=== PATIENT | female | born 1960 | race Caucasian/White ===

== ENCOUNTER 2019-02-25 06:55 | Day surgery (SDC) | payer BC ==
[2019-02-24 17:22] LABS: BASOPHILS % (AUTO) 0.7 % (0-1); EOSINOPHILS # (AUTO) 0.1 X10'3 (0-0.9); EOSINOPHILS % (AUTO) 2.1 % (0-6); HEMATOCRIT 41.5 % (35.0-45.0); LYMPHOCYTES # (AUTO) 1.4 X10'3 (1.1-4.8); LYMPHOCYTES % (AUTO) 27.6 % (21-51); MEAN CORPUSCULAR HEMOGLOBIN 31.6 PG (27.0-31.0); MEAN CORPUSCULAR HGB CONC 33.7 g/dL (33.0-36.5); MEAN CORPUSCULAR VOLUME 93.7 FL (78-98); MEAN PLATELET VOLUME 8.1 FL (7.4-10.4); MONOCYTES # (AUTO) 0.4 X10'3 (0-0.9); MONOCYTES % (AUTO) 8.8 % (2-12); NEUTROPHILS % (AUTO) 60.8 % (42-75); PLATELET COUNT 205 X10'3 (140-440); RED BLOOD COUNT 4.43 X10'6 (4.20-5.60); RED CELL DISTRIBUTION WIDTH 13.5 % (11.5-14.5)
[2019-02-24 17:27] LABS: ALBUMIN 3.7 G/DL (3.4-5.0); ANION GAP 5 (8-16); BLOOD UREA NITROGEN 18 MG/DL (7-18); BUN/CREATININE RATIO 24.3 (6.6-38.0); CALCIUM 8.8 MG/DL (8.5-10.1); CHLORIDE 108 MMOL/L (99-107); CREATININE 0.74 MG/DL (0.40-0.90); GLUCOSE 96 MG/DL (70-104); POTASSIUM 4.5 MMOL/L (3.5-5.1); SODIUM 144 MMOL/L (135-145); TOTAL CARBON DIOXIDE 30.9 MMOL/L (24-32); eGFR 81 ML/MIN
[2019-02-25] VITALS (10 sets, daily range): BP systolic 113–142; BP diastolic 57–80
[~2019-02-25] VITALS: Ht 160 cm; Wt 173.1 kg
[~2019-02-25 06:55] MED LIST: ASCO-157 PO; BENZ-16 PO; CHOL500044 PO; DABI150C PO; DILT-35 PO; DRON400T2 PO; FEXO180T94 PO; HYDR-4353 PO; IBUP-1984 PO; IRON PO; LEVO200T42 PO; LEVO75TA56 PO; METF-516 PO; MULT1TAB74 PO; PANT40TA4 PO; [UNRECOGNIZED DRUG - OTHER] PO
[2019-02-25] MEDS ORDERED: morphine 10mg/ml inj. IV ONE (07:15)
[2019-02-25] MEDS ORDERED: amiodarone in dextrose, iso-osm 150mg/100ml bag IV ONE (07:15)
[2019-02-25] MEDS ORDERED: normal saline 1000ml 1,000 ML IV SCH (07:15)
[2019-02-25] MEDS ORDERED: LORazepam 0.5 MG tablet PO ONE (07:15)
[2019-02-25] MEDS ORDERED: atropine 0.1mg/ml 10ml syringe IV ONE (07:15)
[2019-02-25] MEDS ORDERED: MIDAZolam 5mg/ml 2ml vial IV ONE (07:15)
[2019-02-25] MEDS ORDERED: FURO40TA4 PO (07:53)
[2019-02-25] MEDS ORDERED: DIGO125T PO (07:53)
[2019-02-25] MEDS ORDERED: DIAZ5TAB PO (07:53)
[2019-02-25] MEDS ORDERED: APIX5TAB3 PO (07:53)
== END 2019-02-25 11:20 | disposition home or self-care (01) ==
LOC: SSTAY O 06:55
PROVIDERS: ATTEND Internal Medicine Cardiovascular Disease
DX: I48.0 Paroxysmal atrial fibrillation (principal); G47.33 Obstructive sleep apnea (adult) (pediatric); E11.9 Type 2 diabetes mellitus without complications; E03.9 Hypothyroidism, unspecified; M19.90 Unspecified osteoarthritis, unspecified site; G89.29 Other chronic pain; E66.01 Morbid (severe) obesity due to excess calories; Z68.44 Body mass index [BMI] 60.0-69.9, adult; Z86.73 Personal history of transient ischemic attack (TIA), and cerebral infarction without residual deficits; Z79.899 Other long term (current) drug therapy; Z90.49 Acquired absence of other specified parts of digestive tract; Z98.890 Other specified postprocedural states; Z79.01 Long term (current) use of anticoagulants; Z96.651 Presence of right artificial knee joint; Z87.442 Personal history of urinary calculi; Z88.2 Allergy status to sulfonamides
CPT/HCPCS: 36415; 80048; 85025; 85610; 92960; 93005; 94760; J0282; J0461; J2250; J2270; J7030

== ENCOUNTER 2019-08-03 12:39 | Emergency (ER) | payer BC ==
[~2019-08-03] VITALS: Ht 167.6 cm; Wt 162.0 kg
[~2019-08-03 12:39] MED LIST changes: +APIX5TAB3 PO; -BENZ-16 PO; -DABI150C PO; +DIAZ5TAB PO; +DIGO125T PO; +FURO40TA4 PO; -METF-516 PO; -[UNRECOGNIZED DRUG - OTHER] PO
[2019-08-03 13:20] LABS: BASOPHILS % (AUTO) 0.4 % (0-1); EOSINOPHILS # (AUTO) 0.1 X10'3 (0-0.9); EOSINOPHILS % (AUTO) 1.6 % (0-6); HEMOGLOBIN 14.2 g/dl (12.0-16.0); LYMPHOCYTES # (AUTO) 1.3 X10'3 (1.1-4.8); LYMPHOCYTES % (AUTO) 22.4 % (21-51); MEAN CORPUSCULAR HEMOGLOBIN 29.8 PG (27.0-31.0); MEAN CORPUSCULAR HGB CONC 33.9 g/dL (33.0-36.5); MEAN CORPUSCULAR VOLUME 87.7 FL (78-98); MEAN PLATELET VOLUME 8.1 FL (7.4-10.4); MONOCYTES # (AUTO) 0.5 X10'3 (0-0.9); MONOCYTES % (AUTO) 9.5 % (2-12); NEUTROPHILS # (AUTO) 3.7 X10'3 (1.8-7.7); NEUTROPHILS % (AUTO) 66.1 % (42-75); PLATELET COUNT 208 X10'3 (140-440); RED BLOOD COUNT 4.79 X10'6 (4.20-5.60); RED CELL DISTRIBUTION WIDTH 14.4 % (11.5-14.5); WHITE BLOOD COUNT 5.6 X10'3 (4.5-11.0)
[2019-08-03 13:32] LABS: ALANINE AMINOTRANSFERASE 32 U/L (12-78); ALBUMIN 3.8 G/DL (3.4-5.0); ALBUMIN/GLOBULIN RATIO 1.2 (1.1-1.5); ALKALINE PHOSPHATASE 84 IU/L (46-116); ANION GAP 7 (8-16); ASPARTATE AMINO TRANSFERASE 19 U/L (10-37); BILIRUBIN,TOTAL 0.6 MG/DL (0.1-1.0); BLOOD UREA NITROGEN 16 MG/DL (7-18); BUN/CREATININE RATIO 16.7 (6.6-38.0); CHLORIDE 107 MMOL/L (99-107); CREATININE 0.96 MG/DL (0.40-0.90); GLUCOSE 97 MG/DL (70-104); POTASSIUM 4.2 MMOL/L (3.5-5.1); SODIUM 145 MMOL/L (135-145); TOTAL CARBON DIOXIDE 30.8 MMOL/L (24-32); TOTAL PROTEIN 6.9 G/DL (6.4-8.2); eGFR 60 ML/MIN
[2019-08-03] MEDS ORDERED: LORazepam 2 mg/ml vial IV ONE (14:25)
[2019-08-03] MEDS ORDERED: ondansetron/PF 4mg/2ml inj IV ONE (14:35)
[2019-08-03] MEDS ORDERED: etomidate 2mg/ml inj. IV ONE (14:50)
--- NOTE | 2019-08-03 15:08 | NUR ---
cardioversion with 100 J at 1508. 1 shock delivered. RN, MD, RT AND TECH AT BEDSIDE.
--- NOTE | 2019-08-03 16:14 | NUR ---
pt is awake and alert
[2019-08-03 16:37] VITALS: BP 106/53
--- NOTE | 2019-08-03 17:05 | NUR ---
PT VVS HAVE BEEN STABLE. PT ABLE TO AMBULATE INDEPENDENTLY. PT IN SINUS. PT DENIES N/V. PT DC TO CARE OF
== END 2019-08-03 17:10 | disposition home or self-care (01) ==
LOC: ER 12:40
DX: I48.20 Chronic atrial fibrillation, unspecified (principal); R42 Dizziness and giddiness; I10 Essential (primary) hypertension; G89.29 Other chronic pain; Z87.442 Personal history of urinary calculi; Z98.890 Other specified postprocedural states; Z90.49 Acquired absence of other specified parts of digestive tract; Z88.2 Allergy status to sulfonamides; Z79.899 Other long term (current) drug therapy
CPT/HCPCS: 36415; 71045; 80053; 84484; 85025; 92960; 93005; 96374; 96375; 99285; J2060; J2405

== ENCOUNTER 2019-09-07 11:18 | Emergency (ER) | payer BC ==
[~2019-09-07] VITALS: Ht 167.6 cm; Wt 166.3 kg
[2019-09-07 11:46] LABS: BASOPHILS % (AUTO) 0.4 % (0-1); EOSINOPHILS # (AUTO) 0.2 X10'3 (0-0.9); EOSINOPHILS % (AUTO) 4.3 % (0-6); HEMATOCRIT 40.8 % (35.0-45.0); HEMOGLOBIN 13.6 g/dl (12.0-16.0); LYMPHOCYTES # (AUTO) 1.2 X10'3 (1.1-4.8); LYMPHOCYTES % (AUTO) 23.3 % (21-51); MEAN CORPUSCULAR HEMOGLOBIN 29.8 PG (27.0-31.0); MEAN CORPUSCULAR HGB CONC 33.4 g/dL (33.0-36.5); MEAN CORPUSCULAR VOLUME 89.2 FL (78-98); MEAN PLATELET VOLUME 8.1 FL (7.4-10.4); MONOCYTES # (AUTO) 0.4 X10'3 (0-0.9); MONOCYTES % (AUTO) 7.3 % (2-12); NEUTROPHILS # (AUTO) 3.2 X10'3 (1.8-7.7); NEUTROPHILS % (AUTO) 64.7 % (42-75); PLATELET COUNT 209 X10'3 (140-440); RED BLOOD COUNT 4.57 X10'6 (4.20-5.60); RED CELL DISTRIBUTION WIDTH 14.5 % (11.5-14.5); WHITE BLOOD COUNT 4.9 X10'3 (4.5-11.0)
[2019-09-07 12:00] LABS: ALANINE AMINOTRANSFERASE 31 U/L (12-78); ALBUMIN 3.5 G/DL (3.4-5.0); ALBUMIN/GLOBULIN RATIO 1.1 (1.1-1.5); ALKALINE PHOSPHATASE 77 IU/L (46-116); ANION GAP 7 (8-16); ASPARTATE AMINO TRANSFERASE 20 U/L (10-37); BILIRUBIN,TOTAL 0.7 MG/DL (0.1-1.0); BLOOD UREA NITROGEN 19 MG/DL (7-18); BUN/CREATININE RATIO 22.6 (6.6-38.0); CALCIUM 8.8 MG/DL (8.5-10.1); CHLORIDE 107 MMOL/L (99-107); CREATININE 0.84 MG/DL (0.40-0.90); GLUCOSE 132 MG/DL (70-104); POTASSIUM 4.3 MMOL/L (3.5-5.1); SODIUM 142 MMOL/L (135-145); TOTAL PROTEIN 6.6 G/DL (6.4-8.2); eGFR 70 ML/MIN
[2019-09-07] MEDS ORDERED: LORazepam 2 mg/ml vial IV ONE (13:05)
[2019-09-07] MEDS ORDERED: etomidate 2mg/ml inj. IV ONE (13:05)
[2019-09-07] MEDS ORDERED: ondansetron/PF 4mg/2ml inj IV ONE (13:05)
[2019-09-07 15:33] VITALS: BP 147/78
== END 2019-09-07 15:34 | disposition home or self-care (01) ==
LOC: ER 11:19
DX: I48.91 Unspecified atrial fibrillation (principal); I10 Essential (primary) hypertension; G47.30 Sleep apnea, unspecified; Z90.49 Acquired absence of other specified parts of digestive tract; Z98.890 Other specified postprocedural states; Z88.2 Allergy status to sulfonamides; Z79.01 Long term (current) use of anticoagulants; Z79.899 Other long term (current) drug therapy
CPT/HCPCS: 36415; 71045; 80053; 84443; 84484; 85025; 92960; 93005; 96374; 96375; 99285; J2060; J2405

== ENCOUNTER 2021-05-21 08:40 | Emergency (ER) | payer BC ==
[~2021-05-21] VITALS: Ht 165.1 cm; Wt 160.0 kg
[~2021-05-21 08:40] MED LIST changes: -DRON400T2 PO; +DRON400T7 PO; +MULT-620 PO; -MULT1TAB74 PO; -PANT40TA4 PO; +PANT40TA54 PO
[2021-05-21] MEDS ORDERED: propofol 10mg/ml 20ml vial IV ONE (10:25)
[2021-05-21] MEDS ORDERED: fentaNYL/PF 50MCG/1 ML 2ML syringe IV ONE (11:15)
[2021-05-21 12:14] VITALS: BP 145/76
[2021-05-30] MEDS ORDERED: LEVO25TA7 PO (18:42)
[2021-05-30] MEDS ORDERED: LORA10TA7 PO (18:42)
[2021-05-30] MEDS ORDERED: ASPI-529 PO (18:43)
[2021-05-30] MEDS ORDERED: CYAN-50 PO (18:43)
== END 2021-05-21 12:16 | disposition home or self-care (01) ==
LOC: ER 08:41
DX: S52.501A Unspecified fracture of the lower end of right radius, initial encounter for closed fracture (principal); W19.XXXA Unspecified fall, initial encounter; Y93.89 Activity, other specified; Y92.89 Other specified places as the place of occurrence of the external cause; Y99.8 Other external cause status
CPT/HCPCS: 25600; 73030; 73100; 73110; 96374; 99152; 99285; J3010

== ENCOUNTER 2021-06-05 07:28 | Day surgery (SDC) | payer BC ==
[2021-06-05] VITALS (7 sets, daily range): BP systolic 115–139; BP diastolic 61–75
[~2021-06-05] VITALS: Ht 165.1 cm; Wt 160.7 kg
[~2021-06-05 07:28] MED LIST changes: -APIX5TAB3 PO; +ASPI-529 PO; +CYAN-50 PO; -DIAZ5TAB PO; -DIGO125T PO; -DILT-35 PO; -DRON400T7 PO; -FURO40TA4 PO; +LEVO25TA7 PO; -LEVO75TA56 PO; +LORA10TA7 PO; -MULT-620 PO; +acetaminophen 325mg tablet PO ONE; +ceFAZolin inj. 3,000 MG in normal saline 100ml IV soln 100 ML IV ONE; +celeCOXIB 100mg capsule PO ONE; +famotidine 20mg tablet PO ONE; +gabapentin 300mg capsule PO ONE; +metoclopramide 5 mg/ml inj IV ONE; +oxyCODONE SR 10mg (sust. release) tab -2 tabs (20mg) PO ONE; +ringers solution, lacted 1,000 ML IV SCH; +tranexamic acid inj. 1,000 MG in 0.7% saline 100 ML PMX IV ONE; +vancomycin 1,500 MG in NS 300ml IV soln IV ONE
[2021-06-05] MEDS ORDERED: ondansetron/PF 4mg/2ml inj IV PRN (09:10)
[2021-06-05] MEDS ORDERED: morphine 2 MG/ML inj. syringe IV PRN (09:10)
[2021-06-05] MEDS ORDERED: ringers solution, lacted 1,000 ML IV SCH (09:10)
[2021-06-05] MEDS ORDERED: meperidine/PF 25mg/ml syringe IV PRN ×3 (09:10)
[2021-06-05] MEDS ORDERED: morphine 4 MG/ML inj SYRINge IV PRN (09:10)
[2021-06-05] MEDS ORDERED: proCHLORperazine 10 MG/2 ml inj IV PRN (09:10)
[2021-06-05 09:19] LABS: BASOPHILS % (AUTO) 0.4 % (0-1); EOSINOPHILS # (AUTO) 0.2 X10'3 (0-0.9); EOSINOPHILS % (AUTO) 4.1 % (0-6); LYMPHOCYTES # (AUTO) 0.8 X10'3 (1.1-4.8); LYMPHOCYTES % (AUTO) 19.2 % (21-51); MEAN CORPUSCULAR HEMOGLOBIN 31.7 PG (27.0-31.0); MEAN CORPUSCULAR HGB CONC 34.9 g/dL (33.0-36.5); MEAN CORPUSCULAR VOLUME 90.8 FL (78-98); MEAN PLATELET VOLUME 7.6 FL (7.4-10.4); MONOCYTES # (AUTO) 0.3 X10'3 (0-0.9); MONOCYTES % (AUTO) 8.2 % (2-12); NEUTROPHILS # (AUTO) 2.8 X10'3 (1.8-7.7); NEUTROPHILS % (AUTO) 68.1 % (42-75); PRE OP HEMATOCRIT 36.2 % (35.0-45.0); PRE OP HEMOGLOBIN 12.6 g/dL (12.0-16.0); PRE OP PLATELET COUNT 200 X10'3 (140-440); RED BLOOD COUNT 3.98 X10'6 (4.20-5.60); RED CELL DISTRIBUTION WIDTH 13.6 % (11.5-14.5)
[2021-06-05 09:28] LABS: ALANINE AMINOTRANSFERASE 29 U/L (12-78); ALBUMIN 3.4 G/DL (3.4-5.0); ALBUMIN/GLOBULIN RATIO 1.1 (1.1-1.5); ALKALINE PHOSPHATASE 74 IU/L (46-116); ASPARTATE AMINO TRANSFERASE 19 U/L (10-37); BILIRUBIN,TOTAL 0.6 MG/DL (0.1-1.0); BLOOD UREA NITROGEN 14 MG/DL (7-18); BUN/CREATININE RATIO 20.3 (6.6-38.0); CALCIUM 8.6 MG/DL (8.5-10.1); CREATININE 0.69 MG/DL (0.40-0.90); GLUCOSE 97 MG/DL (70-104); TOTAL CARBON DIOXIDE 27.8 MMOL/L (24-32); TOTAL PROTEIN 6.5 G/DL (6.4-8.2); eGFR 87 ML/MIN
[2021-06-05 09:34] LABS: CHLORIDE 105 MMOL/L (99-107); POTASSIUM 3.9 MMOL/L (3.5-5.1)
[2021-06-05 09:56] LABS: ANION GAP 8 (8-16); SODIUM 141 MMOL/L (135-145)
[2021-06-05] MEDS ORDERED: BUPIVAcaine/PF 2.5mg/ml (0.25%) 10ml vial ONE (10:16)
[2021-06-05] MEDS ORDERED: sevoflurane 250ml liquid IH ONE (10:25)
[2021-06-05] MEDS ORDERED: MIDAZolam 1 MG/ML 5ML VIAL ONE (10:35)
[2021-06-05] MEDS ORDERED: fentaNYL/PF 50MCG/1 ML 2ML syringe ONE (10:35)
[2021-06-05] MEDS ORDERED: ROPIVAcaine 0.5% (5mg/ml) 30ml vial ONE (10:57)
[2021-06-05] MEDS ORDERED: LIDOcaine 2% (20mg/ml) 5ml vial ONE ×2 (10:57→11:15)
[2021-06-05] MEDS ORDERED: dexamethasone sod phosphate 4mg/ml inj. ONE (11:15)
[2021-06-05] MEDS ORDERED: propofol inj 20 ML IV ONE (11:15)
[2021-06-05] MEDS ORDERED: ondansetron/PF 4mg/2ml inj ONE (11:44)
--- NOTE | 2021-06-05 12:02 | NUR ---
Received from OR via [facility] , accompanied by Anesthesiologist DR RODRIGUEZ and report given by Anesthesiolgist. PT COMFORTABLE, AWAKE, DENIES PAIN AND NAUSEA. IV PATENT. SLING TO RIGHT ARM. RIGHT ARM ELEVATED, ICE PACK IN PLACE. GOOD CSM TO RIGHT HAND, FINGERS NORMAL SKIN COLOR. PT RESTING COMFORTABLY.
--- NOTE | 2021-06-05 13:02 | NUR ---
PT DISCHARGED TO HOME SAFELY. INSTRUCTIONS REVIEWED W/ PT WHO STATES UNDERSTANDING. DRSG TO RIGHT ARM CDI. SLING ON. PT TOLERATED LEMON CABAZON SODA AND STATES SHE WAS STARTING TO FEEL MILD PAIN BUT WANTED TO GO HOME AND TAKE HER HOME PAIN MEDICATION. ALL BELONGING W/ PT UPON D/C TO HOME INCLUDING PURSE, MASK AND SHE WAS WEARING HER STREET CLOTHES.
== END 2021-06-05 13:02 | disposition home or self-care (01) ==
LOC: PAS 07:28
PROVIDERS: ATTEND Orthopaedic Surgery
DX: S52.571A Other intraarticular fracture of lower end of right radius, initial encounter for closed fracture (principal); G89.18 Other acute postprocedural pain; I10 Essential (primary) hypertension; I48.91 Unspecified atrial fibrillation; E11.9 Type 2 diabetes mellitus without complications; E03.9 Hypothyroidism, unspecified; M19.90 Unspecified osteoarthritis, unspecified site; G89.29 Other chronic pain; E66.9 Obesity, unspecified; Z68.43 Body mass index [BMI] 50.0-59.9, adult; Z88.2 Allergy status to sulfonamides; Z90.49 Acquired absence of other specified parts of digestive tract; Z98.84 Bariatric surgery status; Z96.652 Presence of left artificial knee joint; Z98.890 Other specified postprocedural states; Z79.899 Other long term (current) drug therapy; X58.XXXA Exposure to other specified factors, initial encounter; Y93.89 Activity, other specified; Y92.89 Other specified places as the place of occurrence of the external cause; Y99.8 Other external cause status
CPT/HCPCS: 25609; 36415; 64417; 76942; 80053; 82948; 85025; 86870; 86885; 86900; 86901; 86902; 86905; 93005; A6222; C1713; J0690; J1100; J2250; J2405; J2704; J2765; J2795; J3010; J3370; J3490; J7030; J7040; J7120; Z7506; Z7508; Z7512; A4618; A6446; A6449; A7000

== ENCOUNTER 2021-10-12 08:26 | Emergency (ER) | payer BC ==
[~2021-10-12] VITALS: Ht 165.1 cm; Wt 158.6 kg
[~2021-10-12 08:26] MED LIST changes: -acetaminophen 325mg tablet PO ONE; -ceFAZolin inj. 3,000 MG in normal saline 100ml IV soln 100 ML IV ONE; -celeCOXIB 100mg capsule PO ONE; -famotidine 20mg tablet PO ONE; -gabapentin 300mg capsule PO ONE; -metoclopramide 5 mg/ml inj IV ONE; -oxyCODONE SR 10mg (sust. release) tab -2 tabs (20mg) PO ONE; -ringers solution, lacted 1,000 ML IV SCH; -tranexamic acid inj. 1,000 MG in 0.7% saline 100 ML PMX IV ONE; -vancomycin 1,500 MG in NS 300ml IV soln IV ONE
[2021-10-12] MEDS ORDERED: magnesium 2GM in 50ml NS 50 ML IV ONE (09:05)
[2021-10-12 09:12] LABS: BASOPHILS % (AUTO) 0.4 % (0-1); EOSINOPHILS # (AUTO) 0.1 X10'3 (0-0.9); EOSINOPHILS % (AUTO) 3.3 % (0-6); HEMATOCRIT 42.6 % (35.0-45.0); HEMOGLOBIN 14.3 g/dl (12.0-16.0); LYMPHOCYTES # (AUTO) 0.9 X10'3 (1.1-4.8); LYMPHOCYTES % (AUTO) 22.1 % (21-51); MEAN CORPUSCULAR HEMOGLOBIN 30.6 PG (27.0-31.0); MEAN CORPUSCULAR HGB CONC 33.5 g/dL (33.0-36.5); MEAN CORPUSCULAR VOLUME 91.6 FL (78-98); MEAN PLATELET VOLUME 7.7 FL (7.4-10.4); MONOCYTES # (AUTO) 0.4 X10'3 (0-0.9); MONOCYTES % (AUTO) 10.7 % (2-12); NEUTROPHILS # (AUTO) 2.6 X10'3 (1.8-7.7); NEUTROPHILS % (AUTO) 63.5 % (42-75); PLATELET COUNT 191 X10'3 (140-440); RED BLOOD COUNT 4.65 X10'6 (4.20-5.60); RED CELL DISTRIBUTION WIDTH 13.7 % (11.5-14.5); WHITE BLOOD COUNT 4.1 X10'3 (4.5-11.0)
[2021-10-12 09:30] LABS: ALANINE AMINOTRANSFERASE 33 U/L (12-78); ALBUMIN 3.5 G/DL (3.4-5.0); ALBUMIN/GLOBULIN RATIO 1.1 (1.1-1.5); ALKALINE PHOSPHATASE 80 IU/L (46-116); ANION GAP 7 (8-16); ASPARTATE AMINO TRANSFERASE 22 U/L (10-37); BILIRUBIN,TOTAL 0.8 MG/DL (0.1-1.0); BLOOD UREA NITROGEN 17 MG/DL (7-18); BUN/CREATININE RATIO 26.2 (6.6-38.0); CALCIUM 8.6 MG/DL (8.5-10.1); CHLORIDE 108 MMOL/L (99-107); CREATININE 0.65 MG/DL (0.40-0.90); GLUCOSE 104 MG/DL (70-104); POTASSIUM 4.5 MMOL/L (3.5-5.1); SODIUM 144 MMOL/L (135-145); TOTAL CARBON DIOXIDE 29.1 MMOL/L (24-32); TOTAL PROTEIN 6.6 G/DL (6.4-8.2); eGFR > 90 ML/MIN
--- NOTE | 2021-10-12 10:20 | NUR ---
Asked MD if he wanted to wait for Magnesium drip. He asked how long it would be until it finished and I told him about an hour. He said to open the drip wide open and send the pt home.
[2021-10-12 10:21] VITALS: BP 116/66
== END 2021-10-12 10:45 | disposition home or self-care (01) ==
LOC: ER 08:27
DX: I48.0 Paroxysmal atrial fibrillation (principal); I10 Essential (primary) hypertension; G89.29 Other chronic pain; M54.9 Dorsalgia, unspecified; Z87.442 Personal history of urinary calculi; Z88.2 Allergy status to sulfonamides; Z88.6 Allergy status to analgesic agent; Z88.8 Allergy status to other drugs, medicaments and biological substances; Z88.5 Allergy status to narcotic agent; Z88.1 Allergy status to other antibiotic agents
CPT/HCPCS: 36415; 71045; 80053; 83880; 84484; 85025; 93005; 96365; 99285; J3475

== ENCOUNTER 2022-04-10 18:27 | Emergency (ER) | payer BC ==
[~2022-04-10] VITALS: Ht 167.6 cm; Wt 160.4 kg
[2022-04-10 19:11] LABS: BASOPHILS % (AUTO) 0.6 % (0-1); EOSINOPHILS # (AUTO) 0.1 X10'3 (0-0.9); EOSINOPHILS % (AUTO) 2.6 % (0-6); HEMATOCRIT 41.2 % (35.0-45.0); HEMOGLOBIN 14.2 g/dl (12.0-16.0); LYMPHOCYTES # (AUTO) 1.4 X10'3 (1.1-4.8); LYMPHOCYTES % (AUTO) 26.7 % (21-51); MEAN CORPUSCULAR HEMOGLOBIN 31.7 PG (27.0-31.0); MEAN CORPUSCULAR HGB CONC 34.4 g/dL (33.0-36.5); MEAN PLATELET VOLUME 7.8 FL (7.4-10.4); MONOCYTES # (AUTO) 0.5 X10'3 (0-0.9); NEUTROPHILS # (AUTO) 3.3 X10'3 (1.8-7.7); NEUTROPHILS % (AUTO) 61.1 % (42-75); PLATELET COUNT 200 X10'3 (140-440); RED BLOOD COUNT 4.48 X10'6 (4.20-5.60); RED CELL DISTRIBUTION WIDTH 13.7 % (11.5-14.5); WHITE BLOOD COUNT 5.4 X10'3 (4.5-11.0)
[2022-04-10 19:20] LABS: ALANINE AMINOTRANSFERASE 47 U/L (12-78); ALBUMIN 3.7 G/DL (3.4-5.0); ALBUMIN/GLOBULIN RATIO 1.2 (1.1-1.5); ALKALINE PHOSPHATASE 85 IU/L (46-116); ANION GAP 5 (8-16); ASPARTATE AMINO TRANSFERASE 26 U/L (10-37); BILIRUBIN,TOTAL 0.6 MG/DL (0.1-1.0); BLOOD UREA NITROGEN 18 MG/DL (7-18); CALCIUM 9.4 MG/DL (8.5-10.1); CHLORIDE 106 MMOL/L (99-107); CREATININE 0.75 MG/DL (0.40-0.90); GLUCOSE 107 MG/DL (70-104); POTASSIUM 4.6 MMOL/L (3.5-5.1); SODIUM 141 MMOL/L (135-145); TOTAL PROTEIN 6.9 G/DL (6.4-8.2); eGFR 79 ML/MIN
[2022-04-10] MEDS ORDERED: NORMAL SALINE IV ONE (19:40)
[2022-04-10] MEDS ORDERED: diazepam inj 5 MG/ML inj. IV ONE (19:40)
[2022-04-10] MEDS ORDERED: ondansetron/PF 4mg/2ml inj IV ONE (19:40)
[2022-04-10] MEDS ORDERED: KETAMINE IV ONE (19:40)
[2022-04-10] MEDS ORDERED: ketamine 10mg/ml 20ml inj 45 MG in normal saline 100ml IV soln 100 ML IV ONE (19:48)
[2022-04-10] MEDS ORDERED: ketamine 50mg/5ml syringe IV ONE (20:00)
[2022-04-10] MEDS ORDERED: ketamine 50 mg/ml 10ml vial ONE (20:12)
[2022-04-10] MEDS ORDERED: metoprolol tartrate 1mg/ml inj IV ONE (20:35)
[2022-04-10 22:23] VITALS: BP 112/74
== END 2022-04-10 22:24 | disposition home or self-care (01) ==
LOC: ER 18:28
DX: I48.91 Unspecified atrial fibrillation (principal); G89.29 Other chronic pain; M54.9 Dorsalgia, unspecified; I10 Essential (primary) hypertension; Z87.442 Personal history of urinary calculi; Z88.2 Allergy status to sulfonamides; Z88.0 Allergy status to penicillin; Z79.899 Other long term (current) drug therapy; Z79.82 Long term (current) use of aspirin
CPT/HCPCS: 36415; 71045; 80053; 83880; 84484; 85025; 93005; 94799; 96374; 96375; 99285; J2405; J3360; J3490; 94760

== ENCOUNTER 2022-12-20 11:35 | Inpatient (IN) | payer BC ==
[~2022-12-20] VITALS: Ht 165.1 cm; Wt 159.0 kg
[2022-12-20] MEDS ORDERED: iohexol 300mg/ml 100ml inj. ONE (15:35)
[2022-12-20 16:23] LABS: BASOPHILS % (AUTO) 0.4 % (0-1); EOSINOPHILS # (AUTO) 0.1 X10'3 (0-0.9); EOSINOPHILS % (AUTO) 2.6 % (0-6); HEMOGLOBIN 13.6 g/dl (12.0-16.0); LYMPHOCYTES # (AUTO) 0.9 X10'3 (1.1-4.8); MEAN CORPUSCULAR HGB CONC 33.1 g/dL (33.0-36.5); MEAN CORPUSCULAR VOLUME 93.8 FL (78-98); MEAN PLATELET VOLUME 7.3 FL (7.4-10.4); MONOCYTES # (AUTO) 0.4 X10'3 (0-0.9); MONOCYTES % (AUTO) 9.1 % (2-12); NEUTROPHILS # (AUTO) 2.5 X10'3 (1.8-7.7); NEUTROPHILS % (AUTO) 63.9 % (42-75); PLATELET COUNT 183 X10'3 (140-440); RED BLOOD COUNT 4.37 X10'6 (4.20-5.60); WHITE BLOOD COUNT 3.9 X10'3 (4.5-11.0)
[2022-12-20 16:45] LABS: ALANINE AMINOTRANSFERASE 29 U/L (12-78); ALBUMIN 3.7 G/DL (3.4-5.0); ALBUMIN/GLOBULIN RATIO 1.2 (1.1-1.5); ALKALINE PHOSPHATASE 76 IU/L (46-116); ANION GAP 10 (8-16); ASPARTATE AMINO TRANSFERASE 18 U/L (10-37); BILIRUBIN,TOTAL 0.8 MG/DL (0.1-1.0); BLOOD UREA NITROGEN 16 MG/DL (7-18); BUN/CREATININE RATIO 25.4 (10.0-20.0); CALCIUM 9.2 MG/DL (8.5-10.1); CHLORIDE 102 MMOL/L (99-107); CREATININE 0.63 MG/DL (0.40-0.90); GLUCOSE 104 MG/DL (70-104); POTASSIUM 4.3 MMOL/L (3.5-5.1); SODIUM 142 MMOL/L (135-145); TOTAL CARBON DIOXIDE 29.7 MMOL/L (24-32); TOTAL PROTEIN 6.7 G/DL (6.4-8.2); eGFR > 90 ML/MIN
[2022-12-20] MEDS ORDERED: metroNIDAZOLE-Flagyl 500mg/NS 100 ML IV STA (19:46)
[2022-12-20] MEDS ORDERED: vancomycin/NS 1 GM ADD-VANTAGE 250 ML IV ONE (19:50)
--- NOTE | 2022-12-20 20:08 | NUR ---
Patient moved from ER fast track to ER Rm 5 via wheelchair.
--- NOTE | 2022-12-20 20:43 | NUR ---
PER PHARMACY OK TO RUN GALO AND JESSICA TOGETHER
[2022-12-20] MEDS ORDERED: temazepam 15mg capsule PO PRN (21:00)
[2022-12-20] MEDS ORDERED: HYDROcodone/acetaminophen 10/325mg tab PO ONE (21:05)
[2022-12-20] MEDS ORDERED: mag hydrox/Alum hydrox/simeth 30ml oral suspension PO PRN (21:35)
[2022-12-20] MEDS ORDERED: acetaminophen 325mg tablet PO PRN (21:35)
[2022-12-20] MEDS ORDERED: magnesium 4gm in 100ml NS 100 ML IV PRN (21:35)
[2022-12-20] MEDS ORDERED: magnesium Cl slow-release 64mg tablet PO PRN (21:35)
[2022-12-20] MEDS ORDERED: magnesium hydroxide 30ml (MOM) UD suspension PO PRN (21:35)
[2022-12-20] MEDS ORDERED: ondansetron/PF 4mg/2ml inj IV PRN (21:35)
[2022-12-20] MEDS ORDERED: magnesium 2GM in 50ml NS 50 ML IV PRN (21:35)
[2022-12-20] MEDS ORDERED: potassium Cl 40MEQ/1/2NS 520ml 520 ML IV PRN (21:35)
[2022-12-20] MEDS ORDERED: potassium Cl 20 mEq SR tablet PO PRN ×2 (21:35)
--- NOTE | 2022-12-20 23:08 | NUR ---
REQUESTED HOSPITAL BED
--- NOTE | 2022-12-20 23:47 | NUR ---
Pt arrived to floor via w/c. VSS. Oriented to room. MRSA swab collected.
[2022-12-20 23:53] VITALS: BP 132/82
[2022-12-21] MEDS ORDERED: cefepime 2g/NS 100ml ADVANTAGE 100 ML IV SCH
[2022-12-21] MEDS: morphine 2 MG/ML inj. syringe IV PRN (00:16)
[2022-12-21] MEDS ORDERED: NYSPWD TOP (01:05)
[2022-12-21] MEDS ORDERED: fluticasone (01:05)
[2022-12-21] MEDS ORDERED: CHOL500050 PO (01:05)
[2022-12-21] MEDS ORDERED: HYDR-3973 PO (01:05)
[2022-12-21] MEDS ORDERED: NITR100C11 PO (01:05)
[2022-12-21] MEDS ORDERED: MAGN400T56 PO (01:05)
[2022-12-21] MEDS ORDERED: FEXO-310 PO (01:05)
[2022-12-21] MEDS ORDERED: DIAZ5TAB22 PO (01:05)
[2022-12-21] MEDS ORDERED: AMOX-580 PO (01:05)
[2022-12-21] MEDS ORDERED: LEVO200T8 PO (01:05)
[2022-12-21] MEDS ORDERED: METO-395 PO (01:05)
[2022-12-21] MEDS ORDERED: FEXO-236 PO (01:05)
[2022-12-21] MEDS ORDERED: APIX5TAB3 PO (01:05)
[2022-12-21] MEDS ORDERED: DIF150T (01:05)
[2022-12-21] MEDS ORDERED: OMEP20CA16 PO (01:05)
[2022-12-21] MEDS ORDERED: TRAM50TA2 PO (01:05)
[2022-12-21] MEDS ORDERED: CIPR500T5 PO (01:05)
[2022-12-21] MEDS: cefepime 2g/NS 100ml ADVANTAGE 100 ML IV SCH ×3 (01:14→16:14)
[2022-12-21] MEDS: HYDROcodone/acetaminophen 10/325mg tab PO PRN ×4 (01:14→21:23)
[2022-12-21] MEDS ORDERED: FERR-39 PO (03:08)
[2022-12-21] MEDS ORDERED: CHOL100046 PO (03:08)
[2022-12-21] MEDS ORDERED: FLUT16SP10 BOTHNARES (03:08)
[2022-12-21] MEDS: metroNIDAZOLE-Flagyl 500mg/NS 100 ML IV SCH ×3 (03:11→21:17)
[2022-12-21] MEDS: vancomycin/NS 1 GM ADD-VANTAGE 250 ML IV SCH ×3 (04:31→21:17)
[2022-12-21 06:00] VITALS: BP 130/71
--- NOTE | 2022-12-21 06:21 | NUR ---
Gave report to Irvin SHAH
[2022-12-21 06:37] LABS: BASOPHILS % (AUTO) 0.6 % (0-1); EOSINOPHILS # (AUTO) 0.1 X10'3 (0-0.9); EOSINOPHILS % (AUTO) 4.3 % (0-6); LYMPHOCYTES # (AUTO) 0.7 X10'3 (1.1-4.8); LYMPHOCYTES % (AUTO) 21.3 % (21-51); MEAN CORPUSCULAR HGB CONC 33.3 g/dL (33.0-36.5); MEAN CORPUSCULAR VOLUME 93.1 FL (78-98); MEAN PLATELET VOLUME 7.6 FL (7.4-10.4); MONOCYTES # (AUTO) 0.3 X10'3 (0-0.9); MONOCYTES % (AUTO) 10.7 % (2-12); NEUTROPHILS % (AUTO) 63.1 % (42-75); PLATELET COUNT 154 X10'3 (140-440); RED BLOOD COUNT 3.86 X10'6 (4.20-5.60); RED CELL DISTRIBUTION WIDTH 13.7 % (11.5-14.5); WHITE BLOOD COUNT 3.2 X10'3 (4.5-11.0)
[2022-12-21 06:45] LABS: ALANINE AMINOTRANSFERASE 27 U/L (12-78); ALBUMIN 3.1 G/DL (3.4-5.0); ALBUMIN/GLOBULIN RATIO 1.1 (1.1-1.5); ALKALINE PHOSPHATASE 65 IU/L (46-116); ANION GAP 9 (8-16); ASPARTATE AMINO TRANSFERASE 16 U/L (10-37); BILIRUBIN,TOTAL 0.8 MG/DL (0.1-1.0); BLOOD UREA NITROGEN 17 MG/DL (7-18); BUN/CREATININE RATIO 26.2 (10.0-20.0); CALCIUM 8.5 MG/DL (8.5-10.1); CHLORIDE 104 MMOL/L (99-107); CREATININE 0.65 MG/DL (0.40-0.90); GLUCOSE 99 MG/DL (70-104); MAGNESIUM 1.6 MG/DL (1.5-2.4); POTASSIUM 3.7 MMOL/L (3.5-5.1); SODIUM 141 MMOL/L (135-145); TOTAL CARBON DIOXIDE 28.1 MMOL/L (24-32); TOTAL PROTEIN 5.8 G/DL (6.4-8.2); eGFR > 90 ML/MIN
--- NOTE | 2022-12-21 06:56 | NUR ---
Patient in room [facility]TH[facility] 4022. I have received report from ALYSSA Christianson and had the opportunity to ask questions and assume patient care.
[2022-12-21] MEDS ORDERED: traMADol 50MG tablet PO PRN (07:40)
[2022-12-21] MEDS ORDERED: fluticasone nasal spray 16GM bottle NS PRN (08:00)
[2022-12-21] MEDS ORDERED: non-formulary drug (Fexofenadine* (Allegra*) 1 TAB) PO SCH (08:00)
[2022-12-21] MEDS ORDERED: diazepam 5mg tablet PO PRN (08:00)
[2022-12-21] MEDS: K and/or MAG REPLACEMENT MC SCH ×2 (08:00→20:00)
[2022-12-21] MEDS: docusate sod 100mg capsule PO SCH ×2 (08:00→20:00)
[2022-12-21] MEDS: metoprolol succinate 25mg (24-HOUR) SR. Tablet PO SCH (08:24)
[2022-12-21] MEDS: loratadine 10mg tablet PO SCH (08:25)
[2022-12-21] MEDS: cyanocobalamin 500mcg tablet PO SCH (08:25)
[2022-12-21] MEDS: magnesium oxide 400mg tablet PO SCH (08:25)
[2022-12-21] MEDS: cholecalciferol (vitamin D3) 1,000 unit (25mcg) tablet PO SCH (08:26)
[2022-12-21] MEDS: levoTHYROXINE 100mcg tablet PO SCH (08:26)
[2022-12-21] MEDS: pantoprazole 40mg Tablet.DR PO SCH (08:26)
[2022-12-21] MEDS: levoTHYROXINE 25mcg tablet PO SCH (08:26)
[2022-12-21] MEDS: ferrous sulfate 325mg tablet PO SCH (08:26)
[2022-12-21] MEDS: apixaban 5mg tablet PO SCH ×2 (08:27→21:21)
[2022-12-21] MEDS: nystatin 15 GM powder TP SCH ×2 (08:27→20:00)
[2022-12-21 10:00] VITALS: BP 136/76
[2022-12-21 18:00] VITALS: BP 137/64
--- NOTE | 2022-12-21 18:23 | NUR ---
Problems reprioritized. Patient report given, questions answered & plan of care reviewed with ALYSSA Christianson.
[2022-12-21] MEDS ORDERED: VANCOMYCIN LEVEL IV ONE (19:30)
[2022-12-21] MEDS ORDERED: enoxaparin 40mg/0.4ml syringe SQ SCH (20:00)
[2022-12-21 22:00] VITALS: BP 133/73
[2022-12-22] MEDS: cefepime 2g/NS 100ml ADVANTAGE 100 ML IV SCH ×3 (00:41→15:44)
[2022-12-22] MEDS: vancomycin/NS 1 GM ADD-VANTAGE 250 ML IV SCH (03:37)
[2022-12-22] MEDS: metroNIDAZOLE-Flagyl 500mg/NS 100 ML IV SCH ×3 (03:37→21:16)
--- NOTE | 2022-12-22 06:27 | NUR ---
GAVE REPORT TO NAKITA SHAH
--- NOTE | 2022-12-22 06:45 | NUR ---
Patient in room ORTH[facility] 4022. I have received report from Meghan SHAH and had the opportunity to ask questions and assume patient care.
[2022-12-22 06:47] LABS: ALANINE AMINOTRANSFERASE 25 U/L (12-78); ALBUMIN/GLOBULIN RATIO 1.2 (1.1-1.5); ALKALINE PHOSPHATASE 60 IU/L (46-116); ANION GAP 8 (8-16); ASPARTATE AMINO TRANSFERASE 16 U/L (10-37); BILIRUBIN,TOTAL 0.7 MG/DL (0.1-1.0); BLOOD UREA NITROGEN 12 MG/DL (7-18); BUN/CREATININE RATIO 15.8 (10.0-20.0); CALCIUM 8.5 MG/DL (8.5-10.1); CHLORIDE 104 MMOL/L (99-107); CREATININE 0.76 MG/DL (0.40-0.90); GLUCOSE 106 MG/DL (70-104); MAGNESIUM 1.8 MG/DL (1.5-2.4); POTASSIUM 3.8 MMOL/L (3.5-5.1); SODIUM 142 MMOL/L (135-145); TOTAL CARBON DIOXIDE 30.2 MMOL/L (24-32); TOTAL PROTEIN 5.6 G/DL (6.4-8.2); eGFR 78 ML/MIN
[2022-12-22 06:50] LABS: BASOPHILS % (AUTO) 0.6 % (0-1); EOSINOPHILS # (AUTO) 0.1 X10'3 (0-0.9); EOSINOPHILS % (AUTO) 5.1 % (0-6); HEMATOCRIT 36.1 % (35.0-45.0); HEMOGLOBIN 11.9 g/dl (12.0-16.0); LYMPHOCYTES # (AUTO) 0.7 X10'3 (1.1-4.8); LYMPHOCYTES % (AUTO) 24.9 % (21-51); MEAN CORPUSCULAR HEMOGLOBIN 31.1 PG (27.0-31.0); MEAN PLATELET VOLUME 7.5 FL (7.4-10.4); MONOCYTES # (AUTO) 0.4 X10'3 (0-0.9); MONOCYTES % (AUTO) 13.4 % (2-12); NEUTROPHILS # (AUTO) 1.6 X10'3 (1.8-7.7); PLATELET COUNT 144 X10'3 (140-440); RED BLOOD COUNT 3.84 X10'6 (4.20-5.60); RED CELL DISTRIBUTION WIDTH 13.8 % (11.5-14.5); WHITE BLOOD COUNT 2.8 X10'3 (4.5-11.0)
[2022-12-22] MEDS: cholecalciferol (vitamin D3) 1,000 unit (25mcg) tablet PO SCH (07:16)
[2022-12-22] MEDS: ferrous sulfate 325mg tablet PO SCH (07:16)
[2022-12-22] MEDS: apixaban 5mg tablet PO SCH ×2 (07:16→21:14)
[2022-12-22] MEDS: docusate sod 100mg capsule PO SCH ×2 (07:16→21:14)
[2022-12-22] MEDS: magnesium oxide 400mg tablet PO SCH (07:16)
[2022-12-22] MEDS: loratadine 10mg tablet PO SCH (07:17)
[2022-12-22] MEDS: levoTHYROXINE 100mcg tablet PO SCH (07:17)
[2022-12-22] MEDS: levoTHYROXINE 25mcg tablet PO SCH (07:17)
[2022-12-22] MEDS: pantoprazole 40mg Tablet.DR PO SCH (07:18)
[2022-12-22] MEDS: metoprolol succinate 25mg (24-HOUR) SR. Tablet PO SCH (07:18)
[2022-12-22] MEDS: nystatin 15 GM powder TP SCH ×2 (07:21→20:00)
[2022-12-22] MEDS: cyanocobalamin 500mcg tablet PO SCH (07:23)
[2022-12-22 07:48] VITALS: BP 132/75
[2022-12-22] MEDS: K and/or MAG REPLACEMENT MC SCH ×2 (08:00→20:00)
[2022-12-22 09:10] LABS: TOTAL CELLS COUNTED 100
[2022-12-22 09:33] LABS: PLATELET ESTIMATE NORMAL
[2022-12-22 09:51] LABS: HIV ANTIBODY 1&2 RAPID NON-REACTIVE (Neg)
[2022-12-22 10:21] VITALS: BP 127/77
[2022-12-22] MEDS: HYDROcodone/acetaminophen 5mg/325mg tablet PO PRN (11:21)
[2022-12-22] MEDS: VANCOmycin 1250MG/NS 250ml Bag 250 ML IV SCH ×2 (12:54→21:19)
[2022-12-22 18:00] VITALS: BP 142/67
[2022-12-22] MEDS: HYDROcodone/acetaminophen 10/325mg tab PO PRN (21:15)
[2022-12-22 22:00] VITALS: BP 143/57
[2022-12-23] MEDS: metroNIDAZOLE-Flagyl 500mg/NS 100 ML IV SCH (03:23)
[2022-12-23] MEDS: morphine 2 MG/ML inj. syringe IV PRN (03:23)
[2022-12-23] MEDS: VANCOmycin 1250MG/NS 250ml Bag 250 ML IV SCH ×2 (04:17→12:11)
[2022-12-23] MEDS: HYDROcodone/acetaminophen 10/325mg tab PO PRN ×4 (04:48→20:03)
[2022-12-23 06:00] VITALS: BP 134/77
[2022-12-23] MEDS: cefepime 2g/NS 100ml ADVANTAGE 100 ML IV SCH ×4 (06:21→23:57)
--- NOTE | 2022-12-23 06:35 | NUR ---
Problems reprioritized. Patient report given, questions answered & plan of care reviewed with RONALDO SHAH.
[2022-12-23] MEDS: K and/or MAG REPLACEMENT MC SCH ×2 (08:00→19:59)
[2022-12-23] MEDS: loratadine 10mg tablet PO SCH (08:31)
[2022-12-23] MEDS: metoprolol succinate 25mg (24-HOUR) SR. Tablet PO SCH (08:31)
[2022-12-23] MEDS: cyanocobalamin 500mcg tablet PO SCH (08:31)
[2022-12-23] MEDS: levoTHYROXINE 100mcg tablet PO SCH (08:31)
[2022-12-23] MEDS: ferrous sulfate 325mg tablet PO SCH (08:32)
[2022-12-23] MEDS: cholecalciferol (vitamin D3) 1,000 unit (25mcg) tablet PO SCH (08:32)
[2022-12-23] MEDS: apixaban 5mg tablet PO SCH ×2 (08:32→20:04)
[2022-12-23] MEDS: docusate sod 100mg capsule PO SCH ×2 (08:32→20:03)
[2022-12-23] MEDS: levoTHYROXINE 25mcg tablet PO SCH (08:32)
[2022-12-23] MEDS: magnesium oxide 400mg tablet PO SCH (08:32)
[2022-12-23] MEDS: pantoprazole 40mg Tablet.DR PO SCH (08:32)
[2022-12-23] MEDS: nystatin 15 GM powder TP SCH ×2 (08:33→20:04)
[2022-12-23] MEDS ORDERED: iohexol 300mg/ml 100ml inj. ONE (08:54)
[2022-12-23 08:58] LABS: BASOPHILS % (AUTO) 0.8 % (0-1); EOSINOPHILS # (AUTO) 0.2 X10'3 (0-0.9); EOSINOPHILS % (AUTO) 6.5 % (0-6); HEMATOCRIT 37.1 % (35.0-45.0); HEMOGLOBIN 12.3 g/dl (12.0-16.0); LYMPHOCYTES # (AUTO) 0.8 X10'3 (1.1-4.8); MEAN CORPUSCULAR HEMOGLOBIN 31.1 PG (27.0-31.0); MEAN CORPUSCULAR HGB CONC 33.1 g/dL (33.0-36.5); MEAN CORPUSCULAR VOLUME 93.8 FL (78-98); MEAN PLATELET VOLUME 7.4 FL (7.4-10.4); MONOCYTES # (AUTO) 0.4 X10'3 (0-0.9); MONOCYTES % (AUTO) 13.1 % (2-12); NEUTROPHILS # (AUTO) 1.6 X10'3 (1.8-7.7); NEUTROPHILS % (AUTO) 53.6 % (42-75); PLATELET COUNT 146 X10'3 (140-440); RED BLOOD COUNT 3.95 X10'6 (4.20-5.60); RED CELL DISTRIBUTION WIDTH 13.8 % (11.5-14.5); WHITE BLOOD COUNT 3.1 X10'3 (4.5-11.0)
[2022-12-23 09:20] LABS: ALANINE AMINOTRANSFERASE 34 U/L (12-78); ALBUMIN 3.1 G/DL (3.4-5.0); ALBUMIN/GLOBULIN RATIO 1.1 (1.1-1.5); ALKALINE PHOSPHATASE 62 IU/L (46-116); ANION GAP 8 (8-16); ASPARTATE AMINO TRANSFERASE 32 U/L (10-37); BILIRUBIN,TOTAL 0.7 MG/DL (0.1-1.0); BLOOD UREA NITROGEN 12 MG/DL (7-18); BUN/CREATININE RATIO 16.7 (10.0-20.0); CALCIUM 8.6 MG/DL (8.5-10.1); CHLORIDE 104 MMOL/L (99-107); CREATININE 0.72 MG/DL (0.40-0.90); GLUCOSE 97 MG/DL (70-104); MAGNESIUM 1.9 MG/DL (1.5-2.4); SODIUM 142 MMOL/L (135-145); TOTAL CARBON DIOXIDE 30.1 MMOL/L (24-32); eGFR 83 ML/MIN
[2022-12-23] MEDS ORDERED: VANCOMYCIN LEVEL IV ONE (11:30)
--- NOTE | 2022-12-23 12:53 | NUR ---
spoke with pharmacist regarding elevated vanco level of 20.3, was instructed to finish current running bag of vanco and pharmacist misbah will retime
[2022-12-23] MEDS: metroNIDAZOLE 500mg tablet PO SCH ×2 (16:14→23:57)
--- NOTE | 2022-12-23 17:00 | NUR ---
I have reviewed and agree with interventions, assessments, and documentation by Layla Queen LVN.
[2022-12-23 18:00] VITALS: BP 124/60
--- NOTE | 2022-12-23 18:36 | NUR ---
Problems reprioritized. Patient report given, questions answered & plan of care reviewed with Liana BRAVO.
[2022-12-23] MEDS: vancomycin/NS 1 GM ADD-VANTAGE 250 ML IV SCH (21:13)
[2022-12-23 22:00] VITALS: BP 118/58
[2022-12-24] MEDS: vancomycin/NS 1 GM ADD-VANTAGE 250 ML IV SCH ×3 (04:14→20:22)
[2022-12-24] MEDS: HYDROcodone/acetaminophen 5mg/325mg tablet PO PRN ×3 (04:18→16:42)
--- NOTE | 2022-12-24 04:46 | NUR ---
COPY LATHE OPERATOR documentation: I have reviewed and agree with assessment performed and documented by FAM Merida
[2022-12-24 06:00] VITALS: BP 105/53
[2022-12-24 06:14] LABS: BASOPHILS % (AUTO) 0.7 % (0-1); EOSINOPHILS # (AUTO) 0.2 X10'3 (0-0.9); EOSINOPHILS % (AUTO) 5.9 % (0-6); HEMATOCRIT 35.8 % (35.0-45.0); HEMOGLOBIN 12.1 g/dl (12.0-16.0); LYMPHOCYTES # (AUTO) 0.9 X10'3 (1.1-4.8); LYMPHOCYTES % (AUTO) 22.1 % (21-51); MEAN CORPUSCULAR HEMOGLOBIN 31.5 PG (27.0-31.0); MEAN CORPUSCULAR HGB CONC 33.7 g/dL (33.0-36.5); MEAN CORPUSCULAR VOLUME 93.4 FL (78-98); MEAN PLATELET VOLUME 7.4 FL (7.4-10.4); MONOCYTES # (AUTO) 0.6 X10'3 (0-0.9); MONOCYTES % (AUTO) 14.3 % (2-12); NEUTROPHILS # (AUTO) 2.2 X10'3 (1.8-7.7); PLATELET COUNT 147 X10'3 (140-440); RED BLOOD COUNT 3.84 X10'6 (4.20-5.60); RED CELL DISTRIBUTION WIDTH 13.7 % (11.5-14.5); WHITE BLOOD COUNT 3.9 X10'3 (4.5-11.0)
[2022-12-24 06:17] LABS: HBSAG SCREEN Negative (Negative); HEP B CORE AB, TOT Negative (Negative)
[2022-12-24 06:21] LABS: ALANINE AMINOTRANSFERASE 56 U/L (12-78); ALBUMIN/GLOBULIN RATIO 1.1 (1.1-1.5); ALKALINE PHOSPHATASE 63 IU/L (46-116); ANION GAP 2 (8-16); ASPARTATE AMINO TRANSFERASE 48 U/L (10-37); BILIRUBIN,TOTAL 0.7 MG/DL (0.1-1.0); BLOOD UREA NITROGEN 18 MG/DL (7-18); BUN/CREATININE RATIO 20.5 (10.0-20.0); CALCIUM 8.6 MG/DL (8.5-10.1); CHLORIDE 104 MMOL/L (99-107); CREATININE 0.88 MG/DL (0.40-0.90); GLUCOSE 98 MG/DL (70-104); MAGNESIUM 1.9 MG/DL (1.5-2.4); POTASSIUM 4.3 MMOL/L (3.5-5.1); SODIUM 139 MMOL/L (135-145); TOTAL CARBON DIOXIDE 33.3 MMOL/L (24-32); TOTAL PROTEIN 5.8 G/DL (6.4-8.2); eGFR 66 ML/MIN
--- NOTE | 2022-12-24 06:29 | NUR ---
Problems reprioritized. Patient report given, questions answered & plan of care reviewed with Layla BRAVO.
--- NOTE | 2022-12-24 06:38 | NUR ---
Patient in room ORTH[facility] 4022. I have received report from Liana BRAVO and had the opportunity to ask questions and assume patient care.
[2022-12-24] MEDS: nystatin 15 GM powder TP SCH ×2 (08:00→20:00)
[2022-12-24] MEDS: K and/or MAG REPLACEMENT MC SCH ×2 (08:00→20:00)
[2022-12-24] MEDS: ferrous sulfate 325mg tablet PO SCH (08:16)
[2022-12-24] MEDS: cyanocobalamin 500mcg tablet PO SCH (08:16)
[2022-12-24] MEDS: metroNIDAZOLE 500mg tablet PO SCH ×2 (08:16→16:38)
[2022-12-24] MEDS: metoprolol succinate 25mg (24-HOUR) SR. Tablet PO SCH (08:17)
[2022-12-24] MEDS: levoTHYROXINE 25mcg tablet PO SCH (08:17)
[2022-12-24] MEDS: pantoprazole 40mg Tablet.DR PO SCH (08:17)
[2022-12-24] MEDS: magnesium oxide 400mg tablet PO SCH (08:17)
[2022-12-24] MEDS: loratadine 10mg tablet PO SCH (08:17)
[2022-12-24] MEDS: apixaban 5mg tablet PO SCH ×2 (08:17→20:15)
[2022-12-24] MEDS: cholecalciferol (vitamin D3) 1,000 unit (25mcg) tablet PO SCH (08:17)
[2022-12-24] MEDS: docusate sod 100mg capsule PO SCH ×2 (08:17→20:15)
[2022-12-24] MEDS: levoTHYROXINE 100mcg tablet PO SCH (08:17)
[2022-12-24] MEDS: cefepime 2g/NS 100ml ADVANTAGE 100 ML IV SCH ×2 (09:44→15:32)
[2022-12-24 10:00] VITALS: BP 147/80
--- NOTE | 2022-12-24 15:00 | NUR ---
I have reviewed and agree with interventions, assessments, and documentation by Layla Queen LVN.
[2022-12-24 18:00] VITALS: BP 123/61
--- NOTE | 2022-12-24 18:30 | NUR ---
Problems reprioritized. Patient report given, questions answered & plan of care reviewed with Li SHAH.
--- NOTE | 2022-12-24 18:40 | NUR ---
Patient in room ORTH[facility] 4022. I have received report from SHELLY Rich and had the opportunity to ask questions and assume patient care.
[2022-12-24] MEDS ORDERED: VANCOMYCIN LEVEL IV ONE (19:30)
[2022-12-24] MEDS: HYDROcodone/acetaminophen 10/325mg tab PO PRN (21:32)
[2022-12-24 22:00] VITALS: BP 139/59
[2022-12-25] MEDS: cefepime 2g/NS 100ml ADVANTAGE 100 ML IV SCH ×2 (00:12→09:31)
[2022-12-25] MEDS: metroNIDAZOLE 500mg tablet PO SCH ×2 (00:12→07:43)
[2022-12-25] MEDS: HYDROcodone/acetaminophen 10/325mg tab PO PRN ×2 (03:23→11:34)
[2022-12-25] MEDS: vancomycin/NS 1 GM ADD-VANTAGE 250 ML IV SCH (04:23)
[2022-12-25 06:00] VITALS: BP 124/64
[2022-12-25 06:25] LABS: BASOPHILS % (AUTO) 0.7 % (0-1); EOSINOPHILS # (AUTO) 0.3 X10'3 (0-0.9); EOSINOPHILS % (AUTO) 6.2 % (0-6); HEMATOCRIT 38.2 % (35.0-45.0); LYMPHOCYTES # (AUTO) 0.8 X10'3 (1.1-4.8); MEAN CORPUSCULAR VOLUME 94.1 FL (78-98); MEAN PLATELET VOLUME 7.7 FL (7.4-10.4); MONOCYTES # (AUTO) 0.5 X10'3 (0-0.9); MONOCYTES % (AUTO) 12.4 % (2-12); NEUTROPHILS # (AUTO) 2.4 X10'3 (1.8-7.7); NEUTROPHILS % (AUTO) 59.7 % (42-75); PLATELET COUNT 152 X10'3 (140-440); RED BLOOD COUNT 4.06 X10'6 (4.20-5.60); RED CELL DISTRIBUTION WIDTH 13.7 % (11.5-14.5)
--- NOTE | 2022-12-25 06:32 | NUR ---
Patient in room ORTH[facility] 4022. I have received report from ALYSSA Jefferson and had the opportunity to ask questions and assume patient care.
--- NOTE | 2022-12-25 06:33 | NUR ---
Problems reprioritized. Patient report given, questions answered & plan of care reviewed with SHELLY Palmer.
[2022-12-25 06:41] LABS: ANION GAP 7 (8-16); BILIRUBIN,TOTAL 0.7 MG/DL (0.1-1.0); BLOOD UREA NITROGEN 22 MG/DL (7-18); BUN/CREATININE RATIO 26.2 (10.0-20.0); CALCIUM 8.7 MG/DL (8.5-10.1); CHLORIDE 103 MMOL/L (99-107); CREATININE 0.84 MG/DL (0.40-0.90); GLUCOSE 100 MG/DL (70-104); POTASSIUM 3.9 MMOL/L (3.5-5.1); SODIUM 140 MMOL/L (135-145); TOTAL CARBON DIOXIDE 30.3 MMOL/L (24-32); eGFR 69 ML/MIN
[2022-12-25 06:42] LABS: ALANINE AMINOTRANSFERASE 74 U/L (12-78); ALBUMIN 3.3 G/DL (3.4-5.0); ALBUMIN/GLOBULIN RATIO 1.1 (1.1-1.5); ALKALINE PHOSPHATASE 65 IU/L (46-116); ASPARTATE AMINO TRANSFERASE 59 U/L (10-37); TOTAL PROTEIN 6.2 G/DL (6.4-8.2)
[2022-12-25] MEDS: K and/or MAG REPLACEMENT MC SCH (07:36)
[2022-12-25] MEDS: loratadine 10mg tablet PO SCH (07:43)
[2022-12-25] MEDS: levoTHYROXINE 25mcg tablet PO SCH (07:44)
[2022-12-25] MEDS: apixaban 5mg tablet PO SCH (07:44)
[2022-12-25] MEDS: levoTHYROXINE 100mcg tablet PO SCH (07:44)
[2022-12-25] MEDS: magnesium oxide 400mg tablet PO SCH (07:44)
[2022-12-25] MEDS: docusate sod 100mg capsule PO SCH (07:44)
[2022-12-25] MEDS: ferrous sulfate 325mg tablet PO SCH (07:44)
[2022-12-25] MEDS: cholecalciferol (vitamin D3) 1,000 unit (25mcg) tablet PO SCH (07:44)
[2022-12-25] MEDS: nystatin 15 GM powder TP SCH (07:45)
[2022-12-25] MEDS: pantoprazole 40mg Tablet.DR PO SCH (07:45)
[2022-12-25] MEDS: metoprolol succinate 25mg (24-HOUR) SR. Tablet PO SCH (07:45)
[2022-12-25] MEDS: cyanocobalamin 500mcg tablet PO SCH (07:49)
[2022-12-25 10:00] VITALS: BP 120/67
[2022-12-25] MEDS ORDERED: PRED20TA PO (11:33)
[2022-12-25] MEDS ORDERED: CEFD300C3 PO (11:33)
--- NOTE | 2022-12-25 12:00 | NUR ---
I have reviewed and agree with interventions, assessments, and documentation by Estela Devries LVN.
--- NOTE | 2022-12-25 12:58 | NUR ---
Patient discharged home. Discharge information was provided and reviewed with patient whom verbalized understanding. IV was removed from right wrist with cannula intact. Staff then assisted patient to personal vehicle with all belongings.
== END 2022-12-25 12:45 | disposition home or self-care (01) | DRG 153 ==
LOC: ER 11:36 → ED HOLD 21:36 → EDBEDREQ 23:15 → ORTHO 4S 23:30
PROVIDERS: ADMIT Internal Medicine; ATTEND Internal Medicine
PROC: BN2 Imaging, Skull and Facial Bones, Computerized Tomography (CT Scan) (ICD-10-PCS; principal; 2022-12-20)
DX: H70.002 Acute mastoiditis without complications, left ear (principal); Z68.43 Body mass index [BMI] 50.0-59.9, adult; E66.01 Morbid (severe) obesity due to excess calories; I10 Essential (primary) hypertension; G47.30 Sleep apnea, unspecified; R07.89 Other chest pain; G89.4 Chronic pain syndrome; J30.9 Allergic rhinitis, unspecified; D72.819 Decreased white blood cell count, unspecified; M54.9 Dorsalgia, unspecified; I48.91 Unspecified atrial fibrillation; Z79.01 Long term (current) use of anticoagulants; Z82.49 Family history of ischemic heart disease and other diseases of the circulatory system; Z87.442 Personal history of urinary calculi; Z88.0 Allergy status to penicillin; Z88.2 Allergy status to sulfonamides; Z88.8 Allergy status to other drugs, medicaments and biological substances; Z79.899 Other long term (current) drug therapy
CPT/HCPCS: 36415; 70481; 70482; 71046; 80053; 80202; 83605; 83735; 84443; 84484; 85007; 85025; 86703; 86704; 86705; 86706; 87040; 87081; 87340; 93005; 99285; G0378; J0692; J2270; J3370; J3490; J7040; Q9967